=== PATIENT | female | born 1945 | race Caucasian/White ===

== ENCOUNTER 2018-03-05 09:08 | Observation (INO) | payer MEDICARE, BC ==
[2018-03-05 09:42] LABS: Hemoglobin 14.1 g/dL (12.0-16.0); Mean Corpuscular HGB CONC 33.4 g/dL (32.0-36.0); Mean Corpuscular Hemoglobin 29.4 pg (27.0-31.0); Mean Corpuscular Volume 88.1 fL (78.0-98.0); Mean Platelet Volume 6.9 fL (7.4-10.4); Platelet Count 297 thou/uL (130-400); RBC Distribution Width 13.1 % (11.5-14.5); Red Blood Cell (RBC) Count 4.81 mill/uL (4.20-5.40); White Blood Cell (WBC) Count 25.7 thou/uL (4.8-10.8)
[2018-03-05 09:48] LABS: INR-International Normal Ratio 0.9; PTT 25.5 SEC (22.9-36.1); Prothrombin Time 12.7 SEC (12.0-14.7)
--- NOTE | 2018-03-05 09:58 | CT ---
CT ANGIOGRAM OF THE HEAD WITH IV CONTRAST AND 3D POSTPROCESSING CT ANGIOGRAM OF THE NECK WITH IV CONTRAST AND 3D POSTPROCESSING: Date: 03/05/18 HISTORY: Altered mental status, memory loss, stroke alert. FINDINGS: There is good flow in the vertebrobasilar and carotid artery systems bilaterally. Scattered atheroscl erotic plaque formation is seen. No evidence of significant stenosis, major branch occlusion, or aneu rysm formation is seen. Extensive lymphadenopathy is seen in the neck. There is a density in the left upper lobe, which is in completely visualized. The findings should be evaluated with PET scanning. Discussed over the telephone with ER physician, Dr. Mccullough, at 0949 hours. CODE CR. POS: ZEINAB
--- NOTE | 2018-03-05 10:00 | CT ---
CT BRAIN WITHOUT CONTRAST: Date: 03/05/18 HISTORY: Altered mental status. Patient had lumpectomy 1 day ago. Memory loss. FINDINGS: No evidence of acute infarct, hemorrhage, midline shift, or abnormal extra-axial fluid collections ar e seen. There is an old lacunar infarct in the right thalamus. Patchy areas of decreased attenuation in the periventricular white matter are consistent with chronic small vessel ischemic disease. The ve ntricular size is appropriate and the basilar cisterns are patent. The bony calvarium is intact. The visualized paranasal sinuses and mastoid air cells are well aerated. IMPRESSION: No CT evidence of acute intracranial process. Report called over phone to ER physician, Dr. Mccullough, at 0926 hours. CODE CR. POS: [facility]
[2018-03-05 10:03] LABS: ALT (SGPT) 19 U/L (8-55); AST (SGOT) 23 U/L (5-34); Albumin 4.1 g/dL (3.4-4.8); Alkaline Phosphatase 87 U/L (40-150); Anion Gap 18 mmol/L (10-20); BUN (Urea Nitrogen) 21 mg/dL (9.8-20.1); Bilirubin, Total 0.5 mg/dL (0.2-1.2); Calc. Creatinine Clearance 0 mL/min (70-130); Calcium 9.3 mg/dL (7.8-10.44); Carbon Dioxide 21 mmol/L (23-31); Chloride 107 mmol/L (98-107); Estimated GFR-MDRD 74; Globulin 2.5 g/dL (2.4-3.5); Glucose 117 mg/dL (83-110); Potassium 4.6 mmol/L (3.5-5.1); Protein, Total 6.6 g/dL (6.0-8.3); Sodium 141 mmol/L (136-145)
[2018-03-05 10:04] LABS: Band 3 % (5-11); Eosinophils 3 % (0-10); Lymphocytes 70 % (21-51); MDiff Complete? YES; Monocytes 2 % (0-10); Neutrophil 21 % (42-75); PLT Morphology Comment Appears Adequate; RBC Morphology Normal; Reflex for Review?? NO
[2018-03-05 10:07] LABS: CKMB 1.6 ng/mL (0-6.6); Troponin I Less than 0.010 ng/mL (< 0.028)
[2018-03-05 10:54] LABS: Bilirubin Negative (Negative); Blood, Urine Negative (Negative); Clarity CLEAR (Clear); Glucose, Urine (Dipstick) Negative (Negative); Leukocyte Negative (Negative); Nitrite Negative (Negative); Protein, Urine (Dipstick) Negative (Neg-Trace); Urobilinogen 0.2 mg/dL (0.2-1.0); pH, Urine 6.5 (5.0-9.0)
[2018-03-05] MEDS ORDERED: Acetaminophen 325 MG TAB PO PRN (11:47)
--- NOTE | 2018-03-05 12:14 | PDOC.FPRHP ---
- History of Present Illness Chief Complaint: foggy this morning History of Present Illness: 72 yo F with PMH of stroke who was brought in by friend for concern for acting different. Patient reported feeling "foggy" staring "early" this morning but doesn't remember anything else before or after. She just knows she called her friend and that's it. She has a history of reported right breast cancer s/p lumpectomy on February 11. She just returned from [facility] in [place] yesterday evening after going back for axillary lymphadenopathy margin repeats. She only received local anesthesia and took tylenol with codeine for pain. Per former , he had called her last night and was doing well, had no complaints aside from minimal pain at the side. ED Course: Aspirin in ED - Allergies/Adverse Reactions Allergies Allergy/AdvReac Type Severity Reaction Status Date / Time bacitracin Allergy Verified 03/05/18 12:54 [From Neosporin Plus] neomycin Allergy Verified 03/05/18 12:54 [From Neosporin Plus] polymyxin B Allergy Verified 03/05/18 12:54 [From Neosporin Plus] - Home Medications Medication Instructions Recorded Confirmed Type Aspirin [Aspirin Chewable Tablet] 1 tab PO DAILY 03/05/18 03/05/18 History Benazepril HCl 1 tab PO DAILY 03/05/18 03/05/18 History Diclofenac Sodium 1 tab PO DAILY 03/05/18 03/05/18 History - History PMHx: CLL, RA, right ductal breast CA, HTN PSHx: Right ductal breast CA s/p lumpectomy with axillary lea sampling, hysterectomy, oophorectomy FHx: cancer, DM Social: denies tobacco and drugs use. No current etOH use (former etoh abuse but clean for 22 yrs) - Review of Systems General: denies: fever/chills, weight/appetite/sleep changes, fatigue Eyes: denies: eye pain, vision changes ENT: denies: nasal congestion Respiratory: denies: cough, congestion, shortness of breath Cardiovascular: denies: chest pain, palpitation, edema Gastrointestinal: denies: nausea, vomiting, constipation, GI bleeding Genitourinary: denies: incontinence, dysuria, polyuria Skin: denies: rashes, lesions, jaundice Musculoskeletal: denies: pain, tenderness, stiffness Neurological: denies: numbness, syncope, seizure, weakness - Vital signs BP: 195/102 HR: 87 RR: 16 Tmax: 98.2 Pox: 95% on RA Wt: 88.83 - Physical Exam Constitutional: awake, alert and oriented HEENT: normocephalic and atraumatic, EOMI, no scleral icterus, grossly normal vision, grossly normal hearing Neck: supple Chest: no-tender to palpation, no lesions -Chest: 6 inch sutured incision at right breast. mildly erythematous. incision suture closed under right axillae. clean/dry/intact. Heart: RRR, normal S1/S2, no murmurs/rubs/gallops Lungs: CTAB, no respiratory distress, good air movement Abdomen: soft, non-tender Musculoskeletal: normal structure, normal tone, ROM grossly normal Neurological: no focal deficit, CN II-XII intact FMR H&P: Results - Labs Result Diagrams: 03/05/18 09:22 03/05/18 09:22 Lab results: WBC 25.7 thou/uL (4.8-10.8) H 03/05/18 09:22 Hgb 14.1 g/dL (12.0-16.0) 03/05/18 09:22 Hct 42.3 % (36.0-47.0) 03/05/18 09:22 MCV 88.1 fL (78.0-98.0) 03/05/18 09:22 Plt Count 297 thou/uL (130-400) 03/05/18 09:22 Band Neuts % (Manual) 3 % (5-11) L 03/05/18 09:22 Sodium 141 mmol/L (136-145) 03/05/18 09:22 Potassium 4.6 mmol/L (3.5-5.1) 03/05/18 09:22 Chloride 107 mmol/L (98-107) 03/05/18 09:22 Carbon Dioxide 21 mmol/L (23-31) L 03/05/18 09:22 BUN 21 mg/dL (9.8-20.1) H 03/05/18 09:22 Creatinine 0.77 mg/dL (0.6-1.1) 03/05/18 09:22 Glucose 117 mg/dL (83-110) H 03/05/18 09:22 Calcium 9.3 mg/dL (7.8-10.44) 03/05/18 09:22 Total Bilirubin 0.5 mg/dL (0.2-1.2) 03/05/18 09:22 AST 23 U/L (5-34) 03/05/18 09:22 ALT 19 U/L (8-55) 03/05/18 09:22 Alkaline Phosphatase 87 U/L (40-150) 03/05/18 09:22 CK-MB (CK-2) 1.6 ng/mL (0-6.6) 03/05/18 09:22 Serum Total Protein 6.6 g/dL (6.0-8.3) 03/05/18 09:22 Albumin 4.1 g/dL (3.4-4.8) 03/05/18 09:22 Urine Ketones Negative mg/dL (Negative) 03/05/18 10:30 Urine Blood Negative (Negative) 03/05/18 10:30 Urine Nitrite Negative (Negative) 03/05/18 10:30 Ur Leukocyte Esterase Negative (Negative) 03/05/18 10:30 - EKG Interpretation EKG: NSR, LAD, no ST elevations FMR H&P: A/P - Problem List (1) Encephalopathy acute Current Visit: Yes Status: Acute Code(s): G93.40 - ENCEPHALOPATHY, UNSPECIFIED (2) Hypertensive urgency Current Visit: Yes Status: Acute Code(s): I16.0 - HYPERTENSIVE URGENCY (3) Chronic hypertension Current Visit: Yes Status: Acute Code(s): I10 - ESSENTIAL (PRIMARY) HYPERTENSION (4) CLL (chronic lymphocytic leukemia) Current Visit: Yes Status: Acute Code(s): C91.90 - LYMPHOID LEUKEMIA, UNSPECIFIED NOT HAVING ACHIEVED REMISSION (5) Hyperglycemia Current Visit: Yes Status: Acute Code(s): R73.9 - HYPERGLYCEMIA, UNSPECIFIED - Plan 72 yo F with PMH of stroke and right ductal cell carcinoma and CLL here with a resolved episode of acute encephalopathy. Acute encephalopathy, resolved -likely 2/2 to stress reaction -ddx: infectious vs. iatrogenic vs. brain mets vs drug induced -cxr: nml -CTH: no bleeds or mass -NIH SS: 2 -will order procal to r/o infection -will order UDS to r/o drug reltaed etiology -can consider brain mri to assess for mets TIA, Stroke R/O -with PMH of stroke, can consider dopplers, fasting lipid panel -less likely with normal neuro exam, but can w/u due to h/o of stroke Hypertensive Urgency -likely 2/2 to not having taken antihypertensives in 2 days -Hydralazine x1, hydralazine PRN -resumed home lisinopril Hyperglycemia -likely to stress reaction -doesn't follow with PCP, will order A1c to check for DM. If diagnostic can add insulin and metofrmin Lymphocytic leukocytosis -likely 2/2 to CLL -no bands or systemic signs of acute infection -will order procal to r/o, start abx and order blood culture if needed Dispo: Episodic encephalopathy, now resolved. If pt. remains medically stable will be discharged tomorrow. Discussed with Dr. Adams FMR H&P: Upper Level - Pertinent history 72F seen today with complaint of fogginess. This morning, at 7 AM, she was seen by her friend who described as being as normal. Then at 0800, she had sudden loss of short term memory. She was not able to recall the previous day event. By approximately 1000, she was able to recall the previous day. She presented to ER where there was concern about stroke. CT/CTA has been negative, except for old ischemic change. Trops negative. CMP/BMP is wnl, except for elevated WBC of 24. She has gotten an aspirin in ER and her NIH score was 2. - Pertinent findings Physical Exam Gen: Alert, grossly oriented, NAD Resp: Unlabored, without obvious rhonchi, wheezing Derm: No obvious lesions Neuro: No gross abnormalities, focal weakness, NIH score currently 0 CT Brain/CT Angio: No acute stroke, previous ischemic changes. - Plan Date/Time: 03/05/18 1208 I, [Tom Solis MD], have evaluated this patient and agree with findings/plan as outlined by supervisor international reservations resident. Pertinent changes/additions are listed here. Assessment/plan 1. Resolved encephalopathy: Possibly secondary to stress response due to surgical excision previous day, consider occult infection, hx of neoplasm and can consider MRI for rule out of brain mets. Obtain procalcitonin to help rule out occult bacterial infection. Continue NIH measurement. Telemonitoring for dysrthmia. 2. Hx of Stroke: Discuss optimizing medical management with statin and better BP control. Patient refuse, saying she had too much on her plate right now. 3. HTN urgency: Discuss BP control and that it can be cause of stroke. Patient refused optimization of BP control at this time. She says she is very upset by her previous physicians but is currently happy with current physicians. 4. PPx: Lovenox for DVT prophylaxis 5. Dispo; Discharge in morning. Patient says she does not feel ready to go home today. Attending Addendum - Attending Addendum Date/Time: 03/05/18 9327 I personally evaluated the patient and discussed the management with Dr. Ruffin. I agree with the History, Examination, Assessment and Plan documented above with any addition or exceptions noted below. Patient with history of breast cancer and history of CVA with recent breast surgery here with "foggy" mentation that lasted a few hours and has now resolved. Patient currently at mental baseline and A&Ox4. She has a non focal exam and demonstrates no abnormalities. Labs do not reveal any major cause for altered mentation, and CT brain does not show any perfusion defects or acute mass. She does have a noted mass on lung imaging that is currently unknown if new or chronic in nature. Patient is currently declining any invasive workup. We will obs patient to stroke and rule out major causes of encephalopathy that is currently resolved. Anticipate discharge tomorrow if doing well. Will need modifications to her BP regimen to obtain better hypertension control.
[2018-03-05] MEDS ORDERED: hydrALAZINE 20 MG/ML VIAL SLOW IVP SCH (12:48)
[2018-03-05] MEDS ORDERED: ISOVUE-370 76%-LOCM 1 ML ONE (13:02)
[2018-03-05 13:05] VITALS: BMI 23.9
[2018-03-05 13:21] LABS: Hemoglobin A1c 5.2 % (4.0-6.0)
[2018-03-05 13:32] LABS: Amphetamine Not Detected (NotDetected); Barbiturates Screen Not Detected (NotDetected); Benzodiazepine Screen Not Detected (NotDetected); Cocaine Metabolite Screen Not Detected (NotDetected); Medtox Control Line Valid? VALID (VALID); Medtox Reader # READER 1; Methadone Not Detected (NotDetected); Methamphetamine Not Detected (NotDetected); Opiate Screen Not Detected (NotDetected); Oxycodone Screen Not Detected (NotDetected); Phencyclidine (PCP) Not Detected (NotDetected); THC/Cannabinoid Screen Not Detected (NotDetected); Tricyclic Screen Not Detected (NotDetected)
[2018-03-05] MEDS ORDERED: hydrALAZINE 20 MG/ML VIAL SLOW IVP PRN ×2 (14:48)
--- NOTE | 2018-03-05 20:00 | MRI ---
BRAIN MRI WITHOUT CONTRAST 03/05/18 HISTORY: CVA. Stroke episode this morning. Evaluate for malignancy. Previous lumpectomy. COMPARISON: None. TECHNIQUE: Brain MRI is performed without intravenous gadolinium administration. Multisequential, multiplanar imaging is performed. FINDINGS: No hemorrhage on the axial gradient echo sequence. Calvarium has a normal T1 marrow signal intensity. Midline brain parenchymal structures are unremarkable. T2 and FLAIR white matter hyperintensities are likely due to chronic small vessel ischemic change. Mi nimal mucosal thickening of the sinuses. Adequate mastoid air cell aeration. Central arterial flow voids are maintained. Absent restricted diffusion. IMPRESSION: 1. Absent restricted diffusion. No evidence of acute infarct. 2. Age appropriate atrophy. Chronic small vessel ischemic change of white matter identified. The re is no evidence of vasogenic edema or cytotoxic edema. POS: [facility]
--- NOTE | 2018-03-05 20:11 | CON ---
DATE OF CONSULTATION: 03/05/2018 NEUROLOGY CONSULTATION CONSULTING PHYSICIAN: Hospitalist service. IMPRESSION: 1. Transient ischemic attack versus transient global amnesia. 2. Breast cancer. 3. Chronic lymphocytic leukemia. PLAN: 1. Restart aspirin. 2. MRI of the brain. 3. Consider further workup if stroke is confirmed. Ms. Echols is a 72-year-old white female who lives in [place]. She was on her way back home from [facility] where she had just had a repeat breast surgery under local anesthesia. She had previous marlon gnosis of CLL, which is being monitored. Her last biopsy report on the breast cancer was that she michele d clean margins except for one. She was with someone on the trip back. Apparently, there was a ballard ge in mental status. She reports that all she knows is that she has amnesia for a piece of time. Wh en she became clear headed, there was no associated headache, nausea, vomiting, vertigo, chest pain, shortness of breath. She reports just feeling a bit foggy. Her workup included a CBC and serum chem istries, which were unremarkable. CTA of the brain was unremarkable as well. 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 PAST MEDICAL HISTORY: As noted above. ALLERGIES: BACITRACIN, NEOMYCIN, POLYMYXIN. FAMILY HISTORY: Noncontributory. SOCIAL HISTORY: No tobacco or alcohol use. REVIEW OF SYSTEMS: Otherwise, negative. PHYSICAL EXAMINATION: GENERAL: She is a well-nourished, middle-aged woman, in no acute distress. VITAL SIGNS: Blood pressure 142/69, pulse 85, respirations 16, temperature 98.4. HEENT: Within normal limits. NECK: Supple. EXTREMITIES: No cyanosis, clubbing or edema. NEUROLOGIC: She is alert and appropriate. Her speech is fluent and clear. Exam is nonfocal. SUMMARY: A 72-year-old woman with a transient episode of amnesia. No clear focal symptoms. There i s no evidence to suggest seizure based on the available data. I would complete her workup with an MR I and make further plans.
[2018-03-06 06:05] LABS: Anion Gap 13 mmol/L (10-20); BUN (Urea Nitrogen) 19 mg/dL (9.8-20.1); Calc. Creatinine Clearance 87 mL/min (70-130); Carbon Dioxide 25 mmol/L (23-31); Cardiac Risk 3.5 (Less than 4.5); Chloride 109 mmol/L (98-107); Cholesterol 183 mg/dl (< 200 Desired); Estimated GFR-MDRD 80; Glucose 105 mg/dL (83-110); HDL Cholesterol 53 mg/dL (>60 Neg Risk); LDL Cholesterol, Calculated 114 mg/dL; Potassium 4.2 mmol/L (3.5-5.1); Sodium 143 mmol/L (136-145); Triglycerides 80 mg/dL (Less than 150)
--- NOTE | 2018-03-06 06:27 | PDOC.FM ---
- Subjective Subjective: no acute events overnight, no complaints. - Objective MAR Reviewed: Yes Vital Signs & Weight: Vital Signs (12 hours) Temp Pulse Resp BP Pulse Ox 03/06/18 04:00 97.8 F 74 18 133/83 94 L 03/06/18 00:00 98.2 F 80 18 116/64 96 03/05/18 21:50 97.7 F 88 19 03/05/18 19:57 97.7 F 88 19 138/71 96 Weight Weight 77.836 kg I&O: 03/04/18 03/05/18 03/06/18 06:59 06:59 06:59 Intake Total 500 Balance 500 Result Diagrams: 03/06/18 05:18 03/06/18 05:18 <Jeniffer Ruffin - Last Filed: 03/06/18 09:47> - Objective Vital Signs & Weight: Vital Signs (12 hours) Temp Pulse Resp BP Pulse Ox 03/06/18 08:00 98.5 F 78 18 151/79 H 93 L 03/06/18 04:00 97.8 F 74 18 133/83 94 L 03/06/18 00:00 98.2 F 80 18 116/64 96 Weight Weight 77.836 kg I&O: 03/05/18 03/06/18 03/07/18 06:59 06:59 06:59 Intake Total 860 Balance 860 Result Diagrams: 03/06/18 05:18 03/06/18 05:18 <Narinder Lopez - Last Filed: 03/06/18 11:23> Phys Exam - Physical Examination Constitutional: NAD HEENT: sclera anicteric dry oral mucosa Neck: supple, full ROM Respiratory: no wheezing, clear to auscultation bilateral Gastrointestinal: soft, non-tender Musculoskeletal: no edema, pulses present Neurological: non-focal, moves all 4 limbs Psychiatric: A&O x 3 Skin: no rash Deviation from normal: decreased skin turgor <Jeniffer Ruffin - Last Filed: 03/06/18 09:47> Dx/Plan (1) Encephalopathy acute Code(s): G93.40 - ENCEPHALOPATHY, UNSPECIFIED Status: Acute (2) Hypertensive urgency Code(s): I16.0 - HYPERTENSIVE URGENCY Status: Acute (3) Chronic hypertension Code(s): I10 - ESSENTIAL (PRIMARY) HYPERTENSION Status: Acute (4) CLL (chronic lymphocytic leukemia) Code(s): C91.90 - LYMPHOID LEUKEMIA, UNSPECIFIED NOT HAVING ACHIEVED REMISSION Status: Acute (5) Hyperglycemia Code(s): R73.9 - HYPERGLYCEMIA, UNSPECIFIED Status: Acute - Plan Plan: 72 yo F with PMH of stroke with transient global amnesia 1. Transient global amnesia, resolved -likely from stress from surgery or taking tylenol or underlying undiagnosed psychiatric disorder -today she reported hx of feeling "fuzzy" when she takes tylenol -patient refuses any further workup-imaging, more labs, desires to go home -mri brain wnl, little concern for stroke -neurology signed off, appreciate recs 2. Hypertensive urgency, resolved -likely 2/2 to medication noncompliance -stable on home meds 3. Chronic hypertension -stable -continue home meds dispo: home today, will f/u with PCP in [place] discussed with dr lopez <Jeniffer Ruffin - Last Filed: 03/06/18 09:47> Attending Addendum - Attending Addendum Date/Time: 03/06/18 1123 I personally evaluated the patient and discussed the management with Dr. Ruffin. I agree with the History, Examination, Assessment and Plan documented above with any addition or exceptions noted below. Patient stable and back at baseline. She has been diagnosed by neurology with transient global amnesia with normal MRI. Patient declines further workup and will be discharged home today. <Narinder Lopez - Last Filed: 03/06/18 11:23>
[2018-03-06 06:28] LABS: Eosinophils 7 % (0-10); Hemoglobin 13.6 g/dL (12.0-16.0); Lymphocytes 65 % (21-51); MDiff Complete? YES; Mean Corpuscular HGB CONC 34.3 g/dL (32.0-36.0); Mean Corpuscular Hemoglobin 30.3 pg (27.0-31.0); Mean Corpuscular Volume 88.5 fL (78.0-98.0); Monocytes 4 % (0-10); Neutrophil 24 % (42-75); PLT Morphology Comment Appears Adequate; Platelet Count 262 thou/uL (130-400); White Blood Cell (WBC) Count 19.4 thou/uL (4.8-10.8)
[2018-03-06 08:15] VITALS: BP 151/79; TEMP 98.5
--- NOTE | 2018-03-06 08:27 | PRG ---
DATE OF SERVICE: 03/06/2018 SUBJECTIVE: Ms. Echols had an uneventful night. Her MRI of the brain was unremarkable for any evid ence of ischemic changes. She seems to be doing well at this point. It was recommended that she go back on her aspirin. I suspect that she had an episode of transient global amnesia. She will follow up in [place] with her [facility] doctors there.
--- NOTE | 2018-03-06 15:15 | EKG ---
Test Reason : Blood Pressure : / mmHG Vent. Rate : 080 BPM Atrial Rate : 080 BPM P-R Int : 144 ms QRS Dur : 142 ms QT Int : 420 ms P-R-T Axes : 047 011 127 degrees QTc Int : 484 ms Normal sinus rhythm Left bundle branch block Abnormal ECG No previous ECGs available Confirmed by AUDI SANCHEZ, PAYTON ([id number] on 03/06/2018 3:15:25 PM Referred By: AR Vegas Confirmed By:PAYTON HUNTLEY MD
--- NOTE | 2018-03-07 16:37 | EKG ---
Test Reason : Blood Pressure : / mmHG Vent. Rate : 088 BPM Atrial Rate : 088 BPM P-R Int : 112 ms QRS Dur : 140 ms QT Int : 400 ms P-R-T Axes : 027 006 143 degrees QTc Int : 484 ms Normal sinus rhythm Left bundle branch block Abnormal ECG Confirmed by BRITNEY ALLEN ([id number]), purchasing expeditor CALEB GREENE ([id number]) on 03/07/2018 4:37:22 PM Referred By: Confirmed By:BRITNEY ALLEN
--- NOTE | 2018-03-09 14:29 | DIS-2 ---
DATE OF ADMISSION: 03/05/2018 DATE OF DISCHARGE: 03/06/2018 RESIDENT: Jeniffer Ruffin, PGY-1. ADMITTING ATTENDING: Dr. Jovel. DISCHARGE ATTENDING: Dr. Jovel. CONSULTATIONS: Neurology. IMAGING: CT head, MRI brain. PRIMARY DIAGNOSIS: Transient global ischemia, hypertensive urgency. SECONDARY DIAGNOSES: Hypertension, rheumatoid arthritis. DISCHARGE MEDICATIONS: 1. Diclofenac sodium 1 tab p.o. daily. 2. Aspirin 1 tab p.o. daily. 3. Benazepril 1 tab p.o. daily. HISTORY OF PRESENT ILLNESS/HOSPITAL COURSE: Ms. Echols is a 72-year-old female with past medical history of stroke, who was brought in by friend for a first time transient episode of forgetfulness. She described it as completely forgetting everything that happened for a period of hours. No prior history of seizures but no witnesses to confirm. She has a recent history of reported right breast cancer in which she undergoing a repeat lymph node biopsy procedure at [facility] in [place], the day before her amnestic episode. Per patient, she received only local anesthetic and took Tylenol with Codeine for pain. Her former had called her that evening of her procedure to check in on her her and reported patient was doing well not behaving in any way different from her usual baseline. Due for concerns stroke, she was admitted for further workup to rule out stroke. CT head and brain MRI were all unremarkable for acute hemorrhagic or ischemic changes. At this point the patient refused any further testing, clearly understanding her decision and at her normal mental baseline while making this choice. Per Neurology, patient's reported episode was diagnosed as transient global amnesia and was thought to be a short term effect secondary to the local anesthesia or use of Tylenol with Codeine that evening. Patient was counseled to be cautious with taking Tylenol in the possibility it may trigger another episode. During admission, blood pressures were stable on her home dose medication and she did not experience any further amnestic episodes or new onset neurologic changes. Lastly, patient had presented to the ED with BPs consistent with hypertensive emergency likely secondary to medication non-compliance since it had been two days since she could remember taking her medications. Her BPs were controlled and stable with resuming her home anti-hypertensive medication. DISPOSITION: Stable. DISCHARGE INSTRUCTIONS: 1. Location: Home. 2. Diet: Heart healthy. 3. Activity: Ad-jennifer as tolerated. 4. Followup: Plans for followup with outside PCP in a [place]. Please do so in 7 -10 days. MTDD
== END 2018-03-06 11:15 | disposition home or self-care (01) ==
LOC: ERS 09:08 → 2SE 10:36
PROVIDERS: ADMIT Student in an Organized Health Care Education/Training Program; ATTEND Student in an Organized Health Care Education/Training Program
DX: G45.4 Transient global amnesia (principal); M06.9 Rheumatoid arthritis, unspecified; G93.40 Encephalopathy, unspecified; I16.0 Hypertensive urgency; I10 Essential (primary) hypertension; F10.11 Alcohol abuse, in remission; C91.10 Chronic lymphocytic leukemia of B-cell type not having achieved remission; R73.9 Hyperglycemia, unspecified; Z86.73 Personal history of transient ischemic attack (TIA), and cerebral infarction without residual deficits; Z85.3 Personal history of malignant neoplasm of breast; Z79.82 Long term (current) use of aspirin; Z79.1 Long term (current) use of non-steroidal anti-inflammatories (NSAID); Z79.899 Other long term (current) drug therapy; Z88.1 Allergy status to other antibiotic agents; Z98.890 Other specified postprocedural states
CPT/HCPCS: 70450; 70496; 70498; 70551; 80048; 80053; 80061; 80306; 81003; 82553; 82962; 83036; 84145; 84484; 85025 ×2; 85610; 85652; 85730; 93005; 97139 ×3; 99285; G0378 ×2; G8987; G8988; G8989; 36415; 36416; 85060; 93010; G8996-GN-CH; G8997-GN-CH; G8998-GN-CH; J0360